=== PATIENT | male | born 1955 | race Two or more races ===

== ENCOUNTER 2020-03-16 07:56 | Outpatient (CLI) | payer OTHER | END 2020-03-16 08:03 | disposition home or self-care (01) | LOC: SONOGRAMA 07:56 | PROVIDERS: ATTEND Specialist | DX: E04.2 Nontoxic multinodular goiter (principal); E21.2 Other hyperparathyroidism ==

== ENCOUNTER 2020-03-16 08:48 | Outpatient (CLI) | payer OTHER | END 2020-03-16 09:22 | disposition home or self-care (01) | LOC: NUCLEAR 08:48 | PROVIDERS: ATTEND Specialist | DX: E21.3 Hyperparathyroidism, unspecified (principal) | CPT/HCPCS: 78071; A9500 ==

== ENCOUNTER 2020-04-06 09:16 | Outpatient (CLI) | payer OTHER | END 2020-04-06 09:27 | disposition home or self-care (01) | LOC: SONOGRAMA 09:16 | PROVIDERS: ATTEND Pathology Anatomic Pathology & Clinical Pathology | DX: E04.1 Nontoxic single thyroid nodule (principal) ==

== ENCOUNTER → 2020-04-11 | Outpatient (CLI) | payer OTHER | END | disposition home or self-care (01) | LOC: NUCLEAR 04-06 14:00 | PROVIDERS: ATTEND Surgery | DX: M85.89 Other specified disorders of bone density and structure, multiple sites (principal); E21.0 Primary hyperparathyroidism ==

== ENCOUNTER 2020-04-13 15:26 | Outpatient (CLI) | payer OTHER | END 2020-04-13 16:20 | disposition home or self-care (01) | LOC: OFIC 805 15:26 | PROVIDERS: ATTEND Otolaryngology | DX: K21.9 Gastro-esophageal reflux disease without esophagitis (principal); R49.0 Dysphonia; R09.89 Other specified symptoms and signs involving the circulatory and respiratory systems ==

== ENCOUNTER 2020-06-27 08:00 | Inpatient (IN) | payer OTHER ==
[~2020-06-27] VITALS: Ht 180.3 cm; Wt 81.6 kg
[2020-06-27] MEDS ORDERED: FORTAMET1000 MG (11:39)
[2020-06-27] MEDS ORDERED: HYDROCHLOROTHIA25 MG PO (11:40)
[2020-06-27] MEDS ORDERED: FENO PO (11:40)
[2020-06-27] MEDS ORDERED: GABAPE PO (11:40)
[2020-06-27] MEDS ORDERED: TENORMIN25 MG PO (11:42)
[2020-06-27] MEDS ORDERED: SIMVASTA PO (11:43)
[2020-06-27] MEDS ORDERED: EXFORGE 10-3201 EACH PO (11:44)
[2020-07-03] MEDS ORDERED: SIMVASTATIN40 MG (16:09)
[2020-07-03] MEDS ORDERED: GABAPENTIN400 MG PO (16:10)
[2020-07-03] MEDS ORDERED: FENOFIBRATE50 MG (16:10)
[2020-07-03] MEDS ORDERED: FINASTERIDE5 MG (16:11)
== END 2020-07-04 13:05 | disposition home or self-care (01) | DRG 627 ==
LOC: O/R 07-02 08:00 → SURH 07-03 08:20 → O/R 07-03 12:45 → SURH 07-03 14:11
PROVIDERS: ADMIT Surgery; ATTEND Surgery
PROC: 0GBM0ZZ Excision of Left Superior Parathyroid Gland, Open Approach (ICD-10-PCS; 2020-07-03)
PROC: 0GTK0ZZ Resection of Thyroid Gland, Open Approach (ICD-10-PCS; principal; 2020-07-03 12:45)
DX: C73 Malignant neoplasm of thyroid gland (principal); D35.1 Benign neoplasm of parathyroid gland; E21.0 Primary hyperparathyroidism

== ENCOUNTER → 2020-07-15 07:46 | Outpatient (CLI) | payer OTHER ==
[~2020-07-15 07:46] MED LIST: EXFORGE 10-3201 EACH PO; FENO PO; FENOFIBRATE50 MG; FINASTERIDE5 MG; FORTAMET1000 MG; GABAPE PO; GABAPENTIN400 MG PO; HYDROCHLOROTHIA25 MG PO; SIMVASTA PO; SIMVASTATIN40 MG; TENORMIN25 MG PO
== END | disposition home or self-care (01) ==
LOC: LAB 07:46
PROVIDERS: ATTEND Surgery
DX: E21.0 Primary hyperparathyroidism (principal)